=== PATIENT | male | born 1985 | race African-American/Black ===

== ENCOUNTER 2018-05-27 19:15 | Emergency (ER) | payer OTHER, SELFPAY ==
--- NOTE | 2018-05-27 20:47 | ER ---
Nurse's Notes [facility] Name: Sagar Wood Age: 33 yrs Sex: Male : 1985 Arrival Date: 05/27/2018 Time: 19:18 Bed 23 Private MD: Diagnosis: Tinea pedis;Cellulitis and acute lymphangitis of finger and toe Presentation: 05/27 19:48 Presenting complaint: Patient states: that 2 days ago he started to have pain to the top of right foot near toes. Now has a red line coming from in between the great toe and 2nd toe to mid top of foot. Pt states that pain has increased. Transition of care: patient was not received from another setting of care. Onset of symptoms was May 25, 2018. Risk Assessment: Do you want to hurt yourself or someone else? Patient reports no desire to harm self or others. Initial Sepsis Screen: Does the patient meet any 2 criteria? No. Patient's initial sepsis screen is negative. Does the patient have a suspected source of infection? No. Patient's initial sepsis screen is negative. Care prior to arrival: None. 19:48 Method Of Arrival: Ambulatory 19:48 Acuity: [place] 4 Triage Assessment: 19:52 General: Appears uncomfortable, Behavior is calm, cooperative, appropriate for age. Pain: Complains of pain in right foot Pain currently is 8 out of 10 on a pain scale. Quality of pain is described as aching, throbbing, Pain began 2-3 days ago. Is continuous, Aggravated by increased activity, repositioning, weight bearing. EENT: No deficits noted. Neuro: Level of Consciousness is awake, alert, obeys commands, Oriented to person, place, time, situation, Appropriate for age. Cardiovascular: No deficits noted. Respiratory: No deficits noted. GI: No deficits noted. : No deficits noted. Derm: Skin is pink, warm \T\ dry. redness to top of right foot. Musculoskeletal: Circulation, motion, and sensation intact. Capillary refill < 3 seconds, Range of motion: intact in all extremities, Reports pain in right foot. Historical: - Allergies: 19:51 PENICILLINS; fc - Home Meds: 19:51 None [Active]; fc - PMHx: 19:51 None; fc - PSHx: 19:51 None; fc - Immunization history:: Last tetanus immunization: unknown, Flu vaccine is not up to date. - Social history:: Smoking status: Patient uses tobacco products, cigars, Patient uses alcohol, occasionally. - Ebola Screening: : Patient negative for fever greater than or equal to 101.5 degrees Fahrenheit, and additional compatible Ebola Virus Disease symptoms Patient denies exposure to infectious person Patient denies travel to an Ebola-affected area in the 21 days before illness onset. Screenin:47 Abuse screen: Denies threats or abuse. Nutritional screening: No deficits noted. la1 Tuberculosis screening: No symptoms or risk factors identified. Fall Risk None identified. Assessment: 20:47 Reassessment: Patient is alert, oriented x 3, equal unlabored respirations, skin la1 warm/dry/pink. Cardiovascular: Patient's skin is warm and dry. Respiratory: Airway is patent Respiratory effort is even, unlabored, Respiratory pattern is regular, symmetrical. GI: No signs and/or symptoms were reported involving the gastrointestinal system. : No signs and/or symptoms were reported regarding the genitourinary system. Vital Signs: 19:51 BP 119 / 80; Pulse 93; Resp 18; Temp 98.3(O); Pulse Ox 97% on R/A; Weight 104.33 kg fc (R); Height 5 ft. 10 in. (177.80 cm) (R); Pain 8/10; 19:51 Body Mass Index 33.00 (104.33 kg, 177.80 cm) fc ED Course: 19:18 Patient arrived in ED. es 19:51 Triage completed. fc 19:51 Arm band placed on Patient placed in waiting room. fc 20:14 Kim Aguilar [facility]-C [facility]. snw 20:14 Mikhail Garcia MD is Attending Physician. snw 20:20 John Nieves RN is Primary Nurse. la1 20:47 Call light in reach. la1 20:47 No provider procedures requiring assistance completed. Patient did not have IV access la1 during this emergency room visit. Administered Medications: 20:41 Drug: DiFLUcan 150 mg Route: PO; la1 20:48 Follow up: Response: No adverse reaction la1 20:41 Drug: Bactrim (160 mg-800 mg (DS) 1 tablet Route: PO; la1 20:48 Follow up: Response: No adverse reaction la1 Outcome: 20:46 Discharge ordered by . shu 20:47 Discharged to home ambulatory. la1 20:47 Condition: stable 20:47 Discharge instructions given to patient, Instructed on discharge instructions, follow up and referral plans. medication usage, Demonstrated understanding of instructions, follow-up care, medications, Prescriptions given X 2. 21:00 Patient left the ED. la1 Signatures: Kim Aguilar, GLOBAL LOGISTICS ANALYST-C GLOBAL LOGISTICS ANALYST-Csnw Carla Solorzano Felicia RN RN John Kang RN RN la1
--- NOTE | 2018-05-27 20:47 | EDPHYS ---
Physician Documentation [facility] Name: Sagar Wood Age: 33 yrs Sex: Male : 1985 Arrival Date: 05/27/2018 Time: 19:18 Bed 23 Private MD: ED Physician Mikhail Garcia HPI: 05/27 22:22 This 33 yrs old Black Male presents to ER via Ambulatory with complaints of Foot Pain. snw 22:22 The patient presents with pain, a rash, erythematous, raised, scaling. The complaints snw affect the right foot and right first toe. Context: The problem was sustained at an unknown site, resulted from an unknown cause, the patient can fully bear weight, the patient is able to ambulate. Onset: The symptoms/episode began/occurred gradually, 2 day(s) ago, and became persistent. Associated signs and symptoms: The patient has no apparent associated signs or symptoms. Severity of symptoms: At their worst the symptoms were moderate. The patient has not experienced similar symptoms in the past. The patient has not recently seen a physician. Historical: - Allergies: 19:51 PENICILLINS; fc - Home Meds: 19:51 None [Active]; fc - PMHx: 19:51 None; fc - PSHx: 19:51 None; fc - Immunization history:: Last tetanus immunization: unknown, Flu vaccine is not up to date. - Social history:: Smoking status: Patient uses tobacco products, cigars, Patient uses alcohol, occasionally. - Ebola Screening: : Patient negative for fever greater than or equal to 101.5 degrees Fahrenheit, and additional compatible Ebola Virus Disease symptoms Patient denies exposure to infectious person Patient denies travel to an Ebola-affected area in the 21 days before illness onset. ROS: 22:19 Constitutional: Negative for fever, chills, and weight loss, Eyes: Negative for injury, snw pain, redness, and discharge, ENT: Negative for injury, pain, and discharge, Neck: Negative for injury, pain, and swelling, Cardiovascular: Negative for chest pain, palpitations, and edema, Respiratory: Negative for shortness of breath, cough, wheezing, and pleuritic chest pain, Abdomen/GI: Negative for abdominal pain, nausea, vomiting, diarrhea, and constipation, Back: Negative for injury and pain, : Negative for injury, bleeding, discharge, and swelling, MS/Extremity: Negative for injury and deformity, Neuro: Negative for headache, weakness, numbness, tingling, and seizure, Psych: Negative for depression, anxiety, suicide ideation, homicidal ideation, and hallucinations. 22:19 Skin: Positive for rash, of the right first toe and right foot. Exam: 22:19 Constitutional: This is a well developed, well nourished patient who is awake, alert, snw and in no acute distress. Head/Face: Normocephalic, atraumatic. Eyes: Pupils equal round and reactive to light, extra-ocular motions intact. Lids and lashes normal. Conjunctiva and sclera are non-icteric and not injected. Cornea within normal limits. Periorbital areas with no swelling, redness, or edema. ENT: Nares patent. No nasal discharge, no septal abnormalities noted. Tympanic membranes are normal and external auditory canals are clear. Oropharynx with no redness, swelling, or masses, exudates, or evidence of obstruction, uvula midline. Mucous membranes moist. Neck: Trachea midline, no thyromegaly or masses palpated, and no cervical lymphadenopathy. Supple, full range of motion without nuchal rigidity, or vertebral point tenderness. No Meningismus. Chest/axilla: Normal chest wall appearance and motion. Nontender with no deformity. No lesions are appreciated. Cardiovascular: Regular rate and rhythm with a normal S1 and S2. No gallops, murmurs, or rubs. Normal PMI, no JVD. No pulse deficits. Respiratory: Lungs have equal breath sounds bilaterally, clear to auscultation and percussion. No rales, rhonchi or wheezes noted. No increased work of breathing, no retractions or nasal flaring. Abdomen/GI: Soft, non-tender, with normal bowel sounds. No distension or tympany. No guarding or rebound. No evidence of tenderness throughout. Back: No spinal tenderness. No costovertebral tenderness. Full range of motion. MS/ Extremity: Pulses equal, no cyanosis. Neurovascular intact. Full, normal range of motion. Neuro: Awake and alert, GCS 15, oriented to person, place, time, and situation. Cranial nerves II-XII grossly intact. Motor strength 5/5 in all extremities. Sensory grossly intact. Cerebellar exam normal. Normal gait. Psych: Awake, alert, with orientation to person, place and time. Behavior, mood, and affect are within normal limits. 22:19 Skin: Appearance: normal except for affected area, cellulitis, that is mild, well demarcated, on the right first toe, induration, is not appreciated, injury, is not appreciated, lesion(s), peeling, fungal appearing rash to bilateral feet, area between right great and second toe with erythema, increased pain, edema with mild lymphangitis. Vital Signs: 19:51 BP 119 / 80; Pulse 93; Resp 18; Temp 98.3(O); Pulse Ox 97% on R/A; Weight 104.33 kg fc (R); Height 5 ft. 10 in. (177.80 cm) (R); Pain 8/10; 19:51 Body Mass Index 33.00 (104.33 kg, 177.80 cm) fc MDM: 20:15 Patient medically screened. snw 22:21 Data reviewed: vital signs, nurses notes. Data interpreted: Pulse oximetry: on room air snw is 97 %. Interpretation: normal. Counseling: I had a detailed discussion with the patient and/or guardian regarding: the historical points, exam findings, and any diagnostic results supporting the discharge/admit diagnosis, the presence of at least one elevated blood pressure reading (>120/80) during this emergency department visit, the need for outpatient follow up, to return to the emergency department if symptoms worsen or persist or if there are any questions or concerns that arise at home. Special discussion: I have referred the patient to see his PCP for further evaluation of high blood pressure. I discussed in detail with the patient the higher chance of wound infection based on his presenting history. Based on the history and exam findings, there is no indication for further emergent testing or inpatient evaluation. 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 I discussed with the patient/guardian the need to see the primary care provider for further evaluation of the symptoms. Administered Medications: 20:41 Drug: DiFLUcan 150 mg Route: PO; la1 20:48 Follow up: Response: No adverse reaction la1 20:41 Drug: Bactrim (160 mg-800 mg (DS) 1 tablet Route: PO; la1 20:48 Follow up: Response: No adverse reaction la1 Disposition: 05/28 09:14 Co-signature as Attending Physician, Mikhail Jose MD I agree with the assessment and rashad plan of care. Disposition: 05/27/18 20:46 Discharged to Home. Impression: Tinea pedis, Cellulitis and acute lymphangitis of finger and toe. - Condition is Stable. - Discharge Instructions: Athlete's Foot, Cellulitis, Adult. - Prescriptions for Fluconazole 150 mg Oral Tablet - take 1 tablet by ORAL route once daily; 15 tablet. Bactrim DS 800- 160 mg Oral Tablet - take 1 tablet by ORAL route every 12 hours for 10 days; 20 tablet. - Work release form, Medication Reconciliation Form, Thank You Letter, Antibiotic Education, Prescription Opioid Use form. - Follow up: Private Physician; When: 2 - 3 days; Reason: Recheck today's complaints, Continuance of care, Re-evaluation by your physician. Follow up: Emergency Department; When: As needed; Reason: Worsening of condition. Signatures: Mikhail Garcia MD MD cha Therrien, Shelly, AIR EXPORT COORDINATOR-C AIR EXPORT COORDINATOR-Csnw Hayde Barnett RN RN John Nieves RN RN la1 Corrections: (The following items were deleted from the chart) 05/27 21:00 20:46 05/27/2018 20:46 Discharged to Home. Impression: Tinea pedis; Cellulitis and la1 acute lymphangitis of finger and toe. Condition is Stable. Forms are Medication Reconciliation Form, Thank You Letter, Antibiotic Education, Prescription Opioid Use. Follow up: Private Physician; When: 2 - 3 days; Reason: Recheck today's complaints, Continuance of care, Re-evaluation by your physician. Follow up: Emergency Department; When: As needed; Reason: Worsening of condition. snw
[2018-05-27] MEDS ORDERED: SMZ./TMP. 800/160 MG TABLET ONE (20:49)
[2018-05-27] MEDS ORDERED: FLUCONAZOLE 100 MG TAB ONE (20:49)
[2018-05-27 21:13] VITALS: BP 119/80; TEMP 98.3; O2SAT 97
== END 2018-05-27 21:00 | disposition home or self-care (01) ==
LOC: ER 19:15
DX: L03.032 Cellulitis of left toe (principal); L03.031 Cellulitis of right toe; I89.1 Lymphangitis; B35.3 Tinea pedis; Z88.0 Allergy status to penicillin; F17.290 Nicotine dependence, other tobacco product, uncomplicated
CPT/HCPCS: 99283